=== PATIENT | female | born 1965 | race Caucasian/White ===

== ENCOUNTER 2020-10-11 12:47 | Emergency (ER) | payer BC ==
[2020-10-11 13:48] LABS: Urine Blood 1+ (Negative); Urine Glucose Negative (Negative); Urine Protein Negative (Negative); Urine Specific Gravity >=1.030 (1.005-1.030); Urine pH 5.5 (5.0-7.0)
[2020-10-11 15:41] LABS: Absolute Lymphocytes (CBC) 1.8 K/uL (0.7-4.9); Basophils % 0.6 % (0-1.3); Hematocrit 47.1 % (36.0-45.0); Lymphocytes % 19.5 % (15.3-44.8); RBC Red Blood Cell Count 4.73 M/uL (3.86-4.86)
[2020-10-11 15:42] LABS: Protime INR 0.99
[2020-10-11 16:04] LABS: ALT/SGPT 31 U/L (12-78); AST/SGOT 24 U/L (15-37); Alkaline Phosphatase 67 U/L (45-117); BUN Blood Urea Nitrogen 7 mg/dL (7-18); Bicarbonate 28 mmol/L (21-32); Bilirubin Direct 0.3 mg/dL (0-0.2); Bilirubin Total 1.1 mg/dL (0.2-1.0); Glucose Level 78 mg/dL (74-106); Lipase 127 U/L (73-393); Magnesium 2.5 mg/dL (1.8-2.4); NT PRO-BNP 677 pg/mL (<125); Potassium 3.5 mmol/L (3.5-5.1); Protein, Total 9.1 g/dL (6.4-8.2); Sodium Level 132 mmol/L (136-145); Troponin (Emerg Dept Use Only) < 0.02 ng/mL (0.0-0.045)
--- NOTE | 2020-10-11 16:04 | RAD REPORT ---
EXAM DESCRIPTION: RAD - Chest Single View - 10/11/2020 2:55 pm CLINICAL HISTORY: CHEST PAIN Chest pain. COMPARISON: CHEST PA AND LAT 2 VIEW dated 02/12/2015; CHEST PA AND LAT 2 VIEW dated 09/22/2014 FINDINGS: Portable technique limits examination quality. The lungs are grossly clear. The heart is normal in size. No displaced fractures. IMPRESSION: No acute intrathoracic process suspected.
[2020-10-11] MEDS ORDERED: MORPHINE 4 MG/ML SYR ONE (16:18)
--- NOTE | 2020-10-11 16:48 | RAD REPORT ---
EXAM DESCRIPTION: CT - Chest For Pe Angio - 10/11/2020 4:35 pm CLINICAL HISTORY: Chest pain. left lower lateral chest pain COMPARISON: Chest Single View dated 10/11/2020 TECHNIQUE: CT angiogram of the pulmonary arteries was performed with MIP. All CT scans are performed using dose optimization technique as appropriate and may include automated exposure control or mA/KV adjustment according to patient size. FINDINGS: No evidence of pulmonary thromboembolism. No acute aortic finding demonstrated. The lungs are grossly clear. No significant pericardial or pleural fluid. No concerning bony finding. IMPRESSION: No evidence of pulmonary thromboembolism.
--- NOTE | 2020-10-11 18:58 | EDPHYS ---
Physician Documentation [facility] Name: Trisha Nunez Age: 55 yrs Sex: Female : 1965 Arrival Date: 10/11/2020 Time: 12:48 Bed 27 Private MD: Brian Mitchell R ED Physician Curt Salgado HPI: 10/11 14:35 This 55 yrs old Female presents to ER via Ambulatory with complaints of cp Abdominal Pain, Breathing Difficulty. 14:35 The patient or guardian reports chest pain that is located primarily in the left cp lateral posterior chest and left lateral anterior chest. 14:35 Onset: yesterday. The symptoms are described as sharp. Modifying factors: the symptoms cp are aggravated by breathing deeply. 14:35 Duration: The patient or guardian reports a single episode, that is still ongoing, and cp unchanged. 14:35 Associated signs and symptoms: Pertinent negatives: abdominal pain, cough, dizziness, cp lower extremity pain, lower extremity swelling, palpitations, recent travel, shortness of breath, syncope. 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 - Social history:: Smoking status: Patient reports the use of cigarette tobacco products, smokes one pack cigarettes per day. Patient uses alcohol, weekly. ROS: 14:40 Constitutional: Negative for body aches, chills, fever, poor PO intake. cp 14:40 Eyes: Negative for injury, pain, redness, and discharge. cp 14:40 ENT: Negative for ear pain, sore throat, difficulty swallowing, difficulty handling secretions. 14:40 Cardiovascular: Positive for chest pain, of the left lateral anterior chest and left lateral posterior chest, Negative for edema, palpitations. 14:40 Respiratory: Negative for cough, shortness of breath, wheezing. 14:40 Abdomen/GI: Negative for abdominal pain, nausea, vomiting, and diarrhea, black/tarry stool, rectal bleeding. 14:40 Back: Negative for radiated pain. 14:40 Skin: Negative for cellulitis, rash. 14:40 Neuro: Negative for altered mental status, headache, syncope, weakness. 14:40 All other systems are negative. Exam: 14:45 Constitutional: The patient appears in no acute distress, alert, awake, cp non-diaphoretic, non-toxic, well developed, well nourished. 14:45 Head/Face: Normocephalic, atraumatic. cp 14:45 Eyes: Periorbital structures: appear normal, Conjunctiva: normal, no exudate, no injection, Sclera: no appreciated abnormality, Lids and lashes: appear normal, bilaterally. 14:45 ENT: External ear(s): are unremarkable, Nose: is normal, Mouth: Lips: moist, Oral mucosa: moist, Posterior pharynx: Airway: no evidence of obstruction, patent. 14:45 Neck: ROM/movement: is normal, is supple, without pain, no range of motions limitations. 14:45 Chest/axilla: Inspection: normal, Palpation: crepitus, is not appreciated, tenderness, that is mild, of the left lateral anterior chest and left lateral posterior chest. 14:45 Cardiovascular: Rate: normal, Rhythm: regular, Heart sounds: murmur, not appreciated, Edema: is not appreciated, JVD: is not appreciated. 14:45 Respiratory: the patient does not display signs of respiratory distress, Respirations: normal, no use of accessory muscles, no retractions, labored breathing, is not present, Breath sounds: are clear throughout, no decreased breath sounds, no stridor, no wheezing. 14:45 Abdomen/GI: Inspection: abdomen appears normal, Palpation: abdomen is soft and non-tender, in all quadrants. 14:45 Back: pain, is absent, ROM is normal. 14:45 Skin: cellulitis, is not appreciated, no rash present. 14:45 Neuro: Orientation: to person, place \T\ time. Mentation: is normal, Motor: moves all fours, strength is normal. 17:43 ECG was reviewed by the Attending Physician. cp Vital Signs: 13:33 BP 185 / 81; Pulse 76; Resp 18; Temp 99.4(O); Pulse Ox 100% on R/A; Weight 49.08 kg kg (M); Height 5 ft. 4 in. (162.56 cm) (R); Pain 8/10; 18:35 BP 168 / 75; Pulse 51; iw 13:33 Body Mass Index 18.57 (49.08 kg, 162.56 cm) kg MDM: 14:26 Patient medically screened. 18:57 Data reviewed: vital signs, nurses notes, lab test result(s), EKG, radiologic studies, cp plain films. 18:57 Test interpretation: by ED physician or midlevel provider: ECG, plain radiologic cp studies. Counseling: I had a detailed discussion with the patient and/or guardian regarding: the historical points, exam findings, and any diagnostic results supporting the discharge/admit diagnosis, lab results, radiology results, the need for outpatient follow up, a family practitioner, to return to the emergency department if symptoms worsen or persist or if there are any questions or concerns that arise at home. Response to treatment: the patient's symptoms have markedly improved after treatment. 10/11 13:48 Order name: Urine Dipstick-Ancillary; Complete Time: 15:17 EDWI 10/11 15:17 Interpretation: Normal except: UKET Trace; UBLD 1+. 10/11 14:30 Order name: Basic Metabolic Panel; Complete Time: 16:10 10/11 16:10 Interpretation: Normal except: NA 132; GFR 81. 10/11 14:30 Order name: CBC with Diff; Complete Time: 16:01 10/11 16:01 Interpretation: Normal except: HGB 16.1; HCT 47.1; MCV 99.5; MCH 34.0. 10/11 14:30 Order name: LFT's; Complete Time: 16:10 10/11 16:10 Interpretation: Normal except: BILIT 1.1; BILID 0.3; TP 9.1; GLOB 5.1; A/G 0.8. 10/11 14:30 Order name: Magnesium; Complete Time: 16:10 10/11 14:30 Order name: NT PRO-BNP; Complete Time: 16:10 10/11 14:30 Order name: PT-INR; Complete Time: 16:10 10/11 14:30 Order name: Troponin (emerg Dept Use Only); Complete Time: 16:10 10/11 14:30 Order name: XRAY Chest (1 view); Complete Time: 16:10 10/11 16:52 Interpretation: Report review. 10/11 14:30 Order name: D-Dimer; Complete Time: 16:10 10/11 14:30 Order name: Lipase; Complete Time: 16:10 10/11 14:35 Order name: Urine --Ancillary (enter results); Complete Time: 15:17 eb 10/11 16:02 Order name: CT Chest For PE Angio; Complete Time: 16:50 10/11 16:50 Interpretation: Report reviewed. 10/11 17:49 Order name: Troponin I 10/11 14:30 Order name: Cardiac monitoring; Complete Time: 17:41 10/11 14:30 Order name: EKG - Nurse/Tech; Complete Time: 17:41 10/11 14:30 Order name: IV Saline Lock; Complete Time: 17:41 10/11 14:30 Order name: Labs collected and sent; Complete Time: 18:46 10/11 14:30 Order name: O2 Per Protocol; Complete Time: 18:46 10/11 14:30 Order name: O2 Sat Monitoring; Complete Time: 18:46 10/11 17:53 Order name: Urine Dipstick-Ancillary (obtain specimen); Complete Time: 08:37 cp EC:43 Rate is 50 beats/min. Rhythm is regular. [place] interval is normal. QRS interval is normal. cp QT interval is normal. T waves are Inverted in leads aVL, V2. Interpreted by me. Reviewed by me. Administered Medications: 16:03 Drug: morphine 2 mg Route: IVP; Site: right antecubital; ca1 19:37 Drug: morphine 2 mg Route: IVP; Site: right antecubital; em 19:37 Follow up: Response: Medication administered at discharge. em 19:40 Follow up: Response: Medication administered at discharge. em 19:37 Not Given (Patient Refused): [place] (HYDROcodone-acetaminophen) (7.5 mg-325 mg) 1 tabs em PO once; RASS on ADMIN: Combtv4, Very Agttd3, Agttd2, Rstlss1, AlertClm0, Drwsy-1, Lt Sdtn-2, Mod Sdtn-3, Dp Sdtn-4, UnArsble-5 Disposition: 06/25/21 18:58 Discharged to Home. Impression: Other chest pain. - Condition is Stable. - Discharge Instructions: Nonspecific Chest Pain, Aspirin and Your Heart. - Prescriptions for Ultracet 37.5- 325 mg Oral Tablet - take 1 tablet by ORAL route every 6 hours - for up to 5 days; do not exceed 8 tablets per day.; 20 tablet. Cyclobenzaprine 10 mg Oral Tablet - take 1 tablet by ORAL route every 8 hours As needed; 20 tablet. Diclofenac Sodium 75 mg Oral Tablet Sustained Release - take 1 tablet by ORAL route 2 times per day; 30 tablet. - Medication Reconciliation Form, Thank You Letter, Antibiotic Education, Prescription Opioid Use form. - Follow up: Private Physician; When: 2 - 3 days; Reason: Recheck today's complaints. - Problem is new. - Symptoms have improved. Addendum: 10/12/2020 21:11 Co-signature as Attending Physician, Curt Salgado MD I agree with the assessment and c khan plan of care. Signatures: Dispatcher [employer] Curt Castaneda MD MD cha Munoz, Edgar, EMEKA RN Mayela Velez RN RN iw Page, Corey, PA PA cp Elizabeth Diane RN RN ca1 Estefanía Schafer RN RN kg Corrections: (The following items were deleted from the chart) 10/11 19:38 18:58 10/11/2020 18:58 Discharged to Home. Impression: Other chest pain. Condition is em Stable. Prescriptions for Ultracet 37.5-325 mg Oral Tablet - take 1 tablet by ORAL route every 6 hours - for up to 5 days; do not exceed 8 tablets per day.; 20 tablet, Cyclobenzaprine 10 mg Oral Tablet - take 1 tablet by ORAL route every 8 hours As needed; 20 tablet. and Forms are Medication Reconciliation Form, Thank You Letter, Antibiotic Education, Prescription Opioid Use. Follow up: Private Physician; When: 2 - 3 days; Reason: Recheck today's complaints. Problem is new. Symptoms have improved. cp
--- NOTE | 2020-10-11 18:58 | ER ---
Nurse's Notes [facility] Name: Trisha Nunez Age: 55 yrs Sex: Female : 1965 Arrival Date: 10/11/2020 Time: 12:48 Bed 27 Private MD: Brian Mitchell R Diagnosis: Other chest pain Presentation: 10/11 13:33 Chief complaint: Patient states: Left sided chest/ flank pain reproducible by touch kg starting yesterday afternoon. Coronavirus screen: Client denies travel out of the [place] in the last 14 days. At this time, unable to obtain information related to travel outside the [place] At this time, the client does not indicate any symptoms associated with coronavirus-19. Ebola Screen: Patient negative for fever greater than or equal to 101.5 degrees Fahrenheit, and additional compatible Ebola Virus Disease symptoms Patient denies exposure to infectious person. Patient denies travel to an Ebola-affected area in the 21 days before illness onset. Initial Sepsis Screen: Does the patient meet any 2 criteria? No. Patient's initial sepsis screen is negative. Does the patient have a suspected source of infection? No. Patient's initial sepsis screen is negative. Risk Assessment: Do you want to hurt yourself or someone else? Patient reports no desire to harm self or others. Onset of symptoms was October 10, 2020 at 13:00. 13:33 Method Of Arrival: Ambulatory kg 13:33 Acuity: ANKUR 3 kg Triage Assessment: 13:37 General: Appears in no apparent distress. Behavior is cooperative, appropriate for age, kg anxious, quiet. Pain: Complains of pain in diaphragm, left lateral anterior chest and left breast Pain does not radiate. Pain currently is 8 out of 10 on a pain scale. at worst was 8 out of 10 on a pain scale. level that patient reports is acceptable is 4 out of 10 on a pain scale. 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 - Social history:: Smoking status: Patient reports the use of cigarette tobacco products, smokes one pack cigarettes per day. Patient uses alcohol, weekly. Screenin:28 Abuse screen: Denies threats or abuse. Denies injuries from another. Nutritional iw screening: No deficits noted. Tuberculosis screening: No symptoms or risk factors identified. Fall Risk None identified. Assessment: 14:28 General: Appears in no apparent distress. Behavior is calm, cooperative. Pain: iw Complains of pain in left lateral anterior chest and abdomen. Neuro: Level of Consciousness is awake, alert, obeys commands, Oriented to person, place, time, situation, Moves all extremities. Full function. Cardiovascular: Patient's skin is warm and dry. Respiratory: Respiratory effort is even, unlabored, Respiratory pattern is regular, symmetrical. GI: Bowel sounds present X 4 quads. Abd is soft X 4 quads. Derm: Skin is intact, is healthy with good turgor. Musculoskeletal: Range of motion: intact in all extremities. 15:45 Reassessment: Patient appears in no apparent distress at this time. Patient and/or iw family updated on plan of care and expected duration. Pain level reassessed. Patient is alert, oriented x 3, equal unlabored respirations, skin warm/dry/pink. 18:25 Reassessment: Patient appears in no apparent distress at this time. Patient and/or iw family updated on plan of care and expected duration. Pain level reassessed. Patient is alert, oriented x 3, equal unlabored respirations, skin warm/dry/pink. pt requesting more pain medication, Curt Lopez notified. Vital Signs: 13:33 BP 185 / 81; Pulse 76; Resp 18; Temp 99.4(O); Pulse Ox 100% on R/A; Weight 49.08 kg kg (M); Height 5 ft. 4 in. (162.56 cm) (R); Pain 8/10; 18:35 BP 168 / 75; Pulse 51; iw 13:33 Body Mass Index 18.57 (49.08 kg, 162.56 cm) kg ED Course: 12:48 Patient arrived in ED. am2 12:48 Brian Mitchell MD is Private Physician. am2 13:36 Triage completed. kg 13:37 Arm band placed on left wrist. kg 14:25 Page, Curt, PA is PHCP. cp 14:25 Curt Salgado MD is Attending Physician. cp 14:28 Mayela Reyes, RN is Primary Nurse. iw 14:35 Patient has correct armband on for positive identification. iw 14:55 XRAY Chest (1 view) In Process Unspecified. EDMS 16:35 CT Chest For PE Angio In Process Unspecified. EDMS 19:37 No provider procedures requiring assistance completed. IV discontinued, intact, em bleeding controlled, No redness/swelling at site. Pressure dressing applied. Administered Medications: 16:03 Drug: morphine 2 mg Route: IVP; Site: right antecubital; ca1 19:37 Drug: morphine 2 mg Route: IVP; Site: right antecubital; em 19:37 Follow up: Response: Medication administered at discharge. em 19:40 Follow up: Response: Medication administered at discharge. em 19:37 Not Given (Patient Refused): [place] (HYDROcodone-acetaminophen) (7.5 mg-325 mg) 1 tabs em PO once; RASS on ADMIN: Combtv4, Very Agttd3, Agttd2, Rstlss1, AlertClm0, Drwsy-1, Lt Sdtn-2, Mod Sdtn-3, Dp Sdtn-4, UnArsble-5 Outcome: 18:58 Discharge ordered by MD. cp 19:37 Discharged to home ambulatory, with family. em 19:37 Condition: stable 19:37 Discharge instructions given to patient, Instructed on discharge instructions, follow up and referral plans. medication usage, Demonstrated understanding of instructions, follow-up care, medications, Prescriptions given X 1. 19:38 Patient left the ED. em Signatures: Dispatcher [employer] EDCT Shiraz Law, RN RN em Mayela Reyes, RN RN iw Curt Lopez PA PA cp Kori Beltran am2 Elizabeth Diane RN RN ca1 Estefanía Schafer RN RN kg
[2020-10-11] MEDS ORDERED: HYDROCODONE/APAP 7.5/325 MG TAB ONE (19:49)
[2020-10-11] MEDS ORDERED: MORPHINE 2 MG/ML SYR ONE (19:52)
[2020-10-11 20:43] VITALS: TEMP 99.4; O2SAT 100
[2020-10-11 20:45] VITALS: BP 168/75
== END 2020-10-11 19:38 | disposition home or self-care (01) ==
LOC: ER 12:47
DX: R07.89 Other chest pain (principal); F41.9 Anxiety disorder, unspecified; F17.210 Nicotine dependence, cigarettes, uncomplicated
CPT/HCPCS: 85025; 80048; 36415; 83735; 81025; 85610; 85379; 80076; 81003; 84484 ×2; 83690; 83880; 71275; 71045; Q9967; J2270; 96374; 99283

== ENCOUNTER 2022-10-15 12:51 | Emergency (ER) | payer BC ==
[2022-10-15] MEDS ORDERED: METOCLOPRAMIDE 10 MG/2mL INJ ONE (13:07)
[2022-10-15] MEDS ORDERED: NA CHLORIDE 0.9% 500 ML ONE (13:07)
[2022-10-15] MEDS ORDERED: DIPHENHYDRAMINE 50 MG/ML VIAL ONE (13:07)
[2022-10-15 13:27] LABS: Absolute Lymphocytes (CBC) 0.8 K/uL (0.7-4.9); Hematocrit 44.3 % (36.0-45.0); Lymphocytes % 4.6 % (15.3-44.8); MCV 101.9 fL (80-100); MPV 7.3 fL (7.6-11.3); RBC Red Blood Cell Count 4.35 M/uL (3.86-4.86)
[2022-10-15] MEDS ORDERED: PANTOPRAZOLE 40 MG INJ ONE (13:30)
[2022-10-15 13:44] LABS: Albumin 3.6 g/dL (3.4-5.0); Bilirubin Total 0.4 mg/dL (0.2-1.0); Potassium 3.6 mEq/L (3.5-5.1); Protein, Total 7.4 g/dL (6.4-8.2)
[2022-10-15 14:12] LABS: Protime INR 0.94
--- NOTE | 2022-10-15 15:16 | RAD REPORT ---
EXAM DESCRIPTION: CT - Angio Aorta For Dissection - 10/15/2022 2:19 pm CLINICAL HISTORY: chest pain, abdominal pain, vomiting COMPARISON: Chest For Pe Angio dated 10/11/2020 TECHNIQUE: Dynamically enhanced 3 mm thick images of the chest, abdomen, and pelvis were obtained du ring administration of approximately 100mL Isovue 370 IV contrast. Sagittal and coronal reconstructio ns as well as maximal intensity projection reconstruction were generated and reviewed per an aortic a ngiography protocol. All CT scans are performed using dose optimization technique as appropriate and may include automated exposure control or mA/KV adjustment according to patient size. FINDINGS: Aorta is normal in diameter with no dissection or mural hematoma. No aneurysmal dilation. Ascending thoracic aorta is normal in caliber, measuring 3.5 centimeter. Short-segment of dense ather osclerotic plaque formation noted along the infrarenal abdominal aorta, with moderate to severe lumin al narrowing, with narrowest diameter measuring 3.5 millimeter. Reconstruction images show no other s ignificant findings. Pulmonary arteries are normal as well. No mass or infiltrate in the lung parenchyma. No pleural thickening, pleural effusion or pneumothorax . No abnormal mediastinal or hilar mass or lymphadenopathy seen. No chest wall mass or abnormal axillar y lymphadenopathy. Celiac, SMA and renal arteries show no suspicious findings. Long segment wall thickening throughout the mid to distal esophagus to the level of the GE junction. Diffuse hepatic parenchymal hypoattenuation suggesting steatosis. Other solid abdominal viscera show no significant findings. Mild sigmoid diverticulosis segmental luminal caliber attenuation with appar ent wall thickening along the body of the stomach, could relate to peristalsis. The remainder of the bowel shows no significant findings. No mass or abnormal lymphadenopathy. IMPRESSION: No acute abnormalities on CT angiogram of the aorta. Short-segment pronounced calcific atherosclerotic plaque formation along the infrarenal abdominal aor ta, with moderate to severe luminal narrowing, narrowest luminal diameter measures 3.5 millimeter. Long segment wall thickening throughout the mid to distal esophagus, nonspecific, and could relate to esophagitis or reflux disease. Please correlate clinically. Diffuse hepatic steatosis. Nonspecific segmental nondistention and apparent wall thickening along the gastric body, may relate t o peristalsis. Possibility of gastritis or underline mucosal lesion is considered less likely.
[2022-10-15 15:35] LABS: Specific Gravity > 1.030 (1.005-1.030); Urine Bilirubin NEGATIVE (Negative); Urine Blood Negative (Negative); Urine Clarity Clear (Clear); Urine Color Light-Yellow (Yellow); Urine Glucose NEGATIVE (Negative); Urine Protein NEGATIVE (Negative); Urine Urobilinogen Normal (Normal); Urine pH 5.5 (5.0-7.0)
--- NOTE | 2022-10-15 16:37 | ER ---
Nurse's Notes [facility] Name: Trisha Nunez Age: 57 yrs Sex: Female : 1965 Arrival Date: 10/15/2022 Time: 12:51 Bed 15 Private MD: Diagnosis: Vomiting Presentation: 10/15 12:52 Chief complaint: EMS states: NAUSEA/VOMITING THIS MORNING AFTER ETOH LAST PM. bp Coronavirus screen: At this time, the client does not indicate any symptoms associated with coronavirus-19. Ebola Screen: No symptoms or risks identified at this time. Initial Sepsis Screen: Does the patient meet any 2 criteria? No. Patient's initial sepsis screen is negative. Does the patient have a suspected source of infection? No. Patient's initial sepsis screen is negative. Risk Assessment: Do you want to hurt yourself or someone else? Patient reports no desire to harm self or others. Onset of symptoms was October 15, 2022. 12:52 Method Of Arrival: EMS: [facility] bp 12:52 Acuity: ANKUR 3 bp Triage Assessment: 12:53 General: Appears in no apparent distress. Behavior is cooperative, appropriate for age, bp anxious. Pain: Denies pain. EENT: No deficits noted. Neuro: No deficits noted. Cardiovascular: No deficits noted. Respiratory: No deficits noted. GI: Reports nausea, vomiting. : No signs and/or symptoms were reported regarding the genitourinary system. Derm: No deficits noted. Musculoskeletal: No deficits noted. Historical: - Allergies: 12:53 No Known Allergies; bp - Home Meds: 12:53 Xanax 0.25 mg Oral tab 1 tab twice a day for Anxiety [Active]; bp - PMHx: 12:53 Anxiety; bp - Immunization history:: Adult Immunizations up to date. - Social history:: Smoking status: Patient reports the use of cigarette tobacco products, unknown amount Patient uses alcohol, on a daily basis. Screenin:54 [facility] ED Fall Risk Assessment (Adult) History of falling in the last 3 months, bp including since admission No falls in past 3 months (0 pts). Abuse screen: Denies threats or abuse. Denies injuries from another. Nutritional screening: No deficits noted. Tuberculosis screening: No symptoms or risk factors identified. Assessment: 12:54 General: SEE TRIAGE NOTE. GI: Abdomen is non-distended. bp 14:00 Reassessment: No changes from previously documented assessment. Patient is alert, bp oriented x 3, equal unlabored respirations, skin warm/dry/pink. 15:38 Reassessment: Patient appears in no apparent distress at this time. Patient is alert, bp oriented x 3, equal unlabored respirations, skin warm/dry/pink. 16:13 Reassessment: PO CHALLENGE SUCCESSFUL. bp Vital Signs: 12:52 BP 146 / 65; Pulse 64; Resp 16; Temp 97.8; Pulse Ox 99% ; bp 14:00 BP 141 / 65; Pulse 92; Resp 16; Pulse Ox 98% ; bp 15:37 BP 140 / 63; Pulse 71; Resp 16; Pulse Ox 99% ; bp 16:13 BP 142 / 68; Pulse 70; Resp 16; Pulse Ox 98% ; bp ED Course: 12:52 Patient arrived in ED. bp 12:53 Triage completed. bp 12:53 Arm band placed on. bp 12:54 Hany Ramirez PA is PHCP. jmm 12:54 Gigi Sears MD is Attending Physician. jmm 12:54 Patient has correct armband on for positive identification. Bed in low position. Call bp light in reach. Side rails up X2. 12:54 Maintain EMS IV. Dressing intact. Good blood return noted. Site clean \T\ dry. Gauge \T\ bp site: 20 GA R AC. 12:57 Memo Tan, EMEKA is Primary Nurse. bp 14:21 CT Aorta for Dissection In Process Unspecified. EDMS 16:36 Negrito Stallworth MD is Referral Physician. [facility] 16:52 No provider procedures requiring assistance completed. IV discontinued, intact, mb9 bleeding controlled, No redness/swelling at site. Pressure dressing applied. Administered Medications: 13:19 Drug: metoCLOPramide IVP 20 mg Route: IVP; Site: left forearm; bp 13:19 Drug: NS 0.9% IV 500 ml Route: IV; Rate: bolus; Site: left forearm; bp 13:19 Drug: diphenhydrAMINE IVP 12.5 mg Route: IVP; Site: left antecubital; bp 13:31 Drug: Pantoprazole IVP 40 mg Route: IVP; Site: left forearm; bp Medication: 12:54 VIS not applicable for this client. bp Outcome: 16:36 Discharge ordered by . jose 16:52 Discharged to home ambulatory. stacie 16:52 Condition: stable 16:52 Discharge instructions given to patient, Instructed on discharge instructions, follow up and referral plans. Demonstrated understanding of instructions, follow-up care, medications, Prescriptions given X 3. 16:52 Patient left the ED. mb9 Signatures: Dispatcher [employer] EDMS Hany Ramirez PA PA jmm Peltier, Brian, EMEKA RN Tiffanie Wilkins RN RN mb9
--- NOTE | 2022-10-15 16:37 | EDPHYS ---
Physician Documentation [facility] Name: Trisha Nunez Age: 57 yrs Sex: Female : 1965 Arrival Date: 10/15/2022 Time: 12:51 Bed 15 Private MD: ED Physician Gigi Sears HPI: 10/15 12:54 This 57 yrs old Female presents to ER via EMS with complaints of Nausea/Vomiting. jmm 12:54 The patient presents to the emergency department with nausea, vomiting, described as jmm dark brown. Onset: The symptoms/episode began/occurred acutely, just prior to arrival. Possible causes: EtOH. The symptoms are aggravated by nothing. The symptoms are alleviated by nothing. Associated signs and symptoms: Pertinent negatives: abdominal pain. This is a 57-year-old female with history of anxiety the presents emerged department with complaints of multiple episodes of vomiting. Denies diarrhea. Patient came concerned because she noticed blood in her vomit. Denies any history of esophageal varices. Does state that she regular drinks alcohol. Patient last drank last night. Historical: - Allergies: 12:53 No Known Allergies; bp - Home Meds: 12:53 Xanax 0.25 mg Oral tab 1 tab twice a day for Anxiety [Active]; bp - PMHx: 12:53 Anxiety; bp - Immunization history:: Adult Immunizations up to date. - Social history:: Smoking status: Patient reports the use of cigarette tobacco products, unknown amount Patient uses alcohol, on a daily basis. ROS: 12:54 Constitutional: Negative for fever, chills, and weight loss, Cardiovascular: Negative jmm for chest pain, palpitations, and edema, Respiratory: Negative for shortness of breath, cough, wheezing, and pleuritic chest pain. 12:54 Abdomen/GI: Positive for abdominal pain, vomiting. 12:54 All other systems are negative. Exam: 12:54 Constitutional: This is a well developed, well nourished patient who is awake, alert, jmm and in no acute distress. Head/Face: atraumatic. Eyes: EOMI, no conjunctival erythema appreciated ENT: Moist Mucus Membranes Neck: Trachea midline, Supple Chest/axilla: Normal chest wall appearance and motion. Cardiovascular: Regular rate and rhythm. No edema appreciated Respiratory: Normal respirations, no respiratory distress appreciated 12:54 Back: Normal ROM Skin: General appearance color normal MS/ Extremity: Moves all extremities, no obvious deformities appreciated, no edema noted to the lower extremities Neuro: Awake and alert Psych: Behavior is normal, Mood is normal, Patient is cooperative and pleasant 12:54 Abdomen/GI: Inspection: abdomen appears normal, Bowel sounds: normal, Palpation: soft, mild abdominal tenderness, in the right upper quadrant and left upper quadrant. Vital Signs: 12:52 BP 146 / 65; Pulse 64; Resp 16; Temp 97.8; Pulse Ox 99% ; bp 14:00 BP 141 / 65; Pulse 92; Resp 16; Pulse Ox 98% ; bp 15:37 BP 140 / 63; Pulse 71; Resp 16; Pulse Ox 99% ; bp 16:13 BP 142 / 68; Pulse 70; Resp 16; Pulse Ox 98% ; bp MDM: 12:54 Patient medically screened. [facility] 18:45 Differential diagnosis: Nonspecific abd pain, gastritis, pancreatitis. Data reviewed: [facility] vital signs, nurses notes, lab test result(s), radiologic studies, CT scan. Consideration of Admission/Observation Escalation of care including admission/observation considered. I considered the following discharge prescriptions or medication management in the emergency department Medications were administered in the Emergency Department. See MAR. Counseling: I had a detailed discussion with the patient and/or guardian regarding: the historical points, exam findings, and any diagnostic results supporting the discharge/admit diagnosis, lab results, radiology results, the need for outpatient follow up, to return to the emergency department if symptoms worsen or persist or if there are any questions or concerns that arise at home. Response to treatment: the patient's symptoms have markedly improved after treatment, patient is well hydrated. Refusal of service: The patient/guardian displays adequate decision making capability and despite a detailed discussion of alternatives, benefits, risks, and consequences refuses: Admission to the hospital for further work-up and treatment. 10/15 12:55 Order name: CBC with Diff [facility] 10/15 12:55 Order name: CMP; Complete Time: 13:45 [facility] 10/15 12:55 Order name: Lipase; Complete Time: 13:45 [facility] 10/15 12:55 Order name: Urinalysis w/ reflexes; Complete Time: 15:42 [facility] 10/15 12:58 Order name: PT-INR; Complete Time: 14:13 [facility] 10/15 12:58 Order name: ETOH Level; Complete Time: 14:28 [facility] 10/15 12:56 Order name: CT Aorta for Dissection; Complete Time: 15:18 [facility] 10/15 12:55 Order name: IV Saline Lock; Complete Time: 12:55 [facility] 10/15 12:55 Order name: Labs collected and sent; Complete Time: 13:19 [facility] Administered Medications: 13:19 Drug: metoCLOPramide IVP 20 mg Route: IVP; Site: left forearm; bp 13:19 Drug: NS 0.9% IV 500 ml Route: IV; Rate: bolus; Site: left forearm; bp 13:19 Drug: diphenhydrAMINE IVP 12.5 mg Route: IVP; Site: left antecubital; bp 13:31 Drug: Pantoprazole IVP 40 mg Route: IVP; Site: left forearm; bp Disposition: 18:56 Co-signature as Attending Physician, Gigi Sears MD I reviewed the patient's care rn provided by the Advanced Practice Provider and agree with the diagnosis and treatment plan. Disposition Summary: 10/15/22 16:36 Discharge Ordered Location: Home [facility] Condition: Stable [facility] Diagnosis - Vomiting [facility] Followup: [facility] - With: Negrito Stallworth MD - When: 2 - 3 days - Reason: Recheck today's complaints, Continuance of care, Re-evaluation by your physician Discharge Instructions: - Discharge Summary Sheet [facility] - Vomiting, Adult [facility] Forms: - Medication Reconciliation Form [facility] - Thank You Letter [facility] - Antibiotic Education [facility] - Prescription Opioid Use [facility] - [email or web address] [facility] Prescriptions: - Protonix 40 mg Oral granules delayed release for susp packet - administer 1 packet by ORAL route daily; 30 packet; Refills: 0, Product [facility] Selection Permitted - ondansetron 4 mg Oral Tablet,disintegrating - take 1 tablet by ORAL route every 4 to 6 hours As needed as needed for nausea [facility] and vomiting; 30 tablet; Refills: 0, Product Selection Permitted - promethazine 6.25 mg/5 mL Oral Syrup - take 20 milliliter by ORAL route every 6 hours As needed; 200 milliliter; [facility] Refills: 0, Product Selection Permitted Signatures: [facility] EDHany Lopez PA PA jmm Nieto, Roman, MD MD rn Peltier, Memo, EMEKA RN bp
[2022-10-15 16:58] VITALS: TEMP 97.8
[2022-10-15 17:01] VITALS: BP 142/68; O2SAT 98
[2022-10-15 17:40] LABS: Blood Morphology Comment NOT SEEN (NOT SEEN); Platelet Estimate ADEQ; White Blood Cell Scan OK (OK)
== END 2022-10-15 16:52 | disposition home or self-care (01) ==
LOC: ER 12:51
DX: R11.10 Vomiting, unspecified (principal); R10.9 Unspecified abdominal pain; F41.9 Anxiety disorder, unspecified; Z72.0 Tobacco use
CPT/HCPCS: 85025; 36415; 85610; 81003; 83690; 80053; 71275; 74175; 99284; 82077; Q9967; J2765; J1200; C9113; J7040